=== PATIENT | female | born 1965 | race Two or more races ===

== ENCOUNTER 2022-02-09 02:05 | Inpatient (IN) | payer MEDICAID ==
[~2022-02-09] VITALS: Ht 157.5 cm; Wt 88.0 kg
[2022-02-09 02:48] LABS: BASOPHILS % (AUTO) 0.5 % (0.0-2.0); EOSINOPHILS % (AUTO) 3.1 % (1.0-6.0); HEMATOCRIT 40.1 % (36-46); HEMOGLOBIN 13.2 g/dL (12.0-16.0); LYMPHOCYTES # (AUTO) 3.9 K/uL (1.0-4.8); LYMPHOCYTES % (AUTO) 39.4 % (22.0-44.0); MEAN CORPUSCULAR HEMOGLOBIN 28.1 pg (26.0-34.0); MEAN CORPUSCULAR VOLUME 85 fL (80-100); MONOCYTES # (AUTO) 0.6 K/uL (0.1-1.0); MONOCYTES % (AUTO) 5.9 % (2.0-9.0); NEUTROPHILS % (AUTO) 51.1 % (40.0-70.0); PLATELET COUNT (AUTO) 318 K/uL (150-450); RED BLOOD CELL COUNT(AUTO) 4.71 MIL/uL (4.00-5.20); RED CELL DISTRIBUTION WIDTH 15.5 % (11.5-14.5)
[2022-02-09 02:57] LABS: ANION GAP 9 mmol/L (8-16); CALCIUM, TOTAL 8.4 mg/dL (8.8-10.5); CARBON DIOXIDE 27 mmol/L (22-29); CHLORIDE 103 mmol/L (98-107); CREATININE 0.75 mg/dL (0.60-1.30); GLUCOSE,RANDOM 123 mg/dL (70-110); POTASSIUM 3.4 mmol/L (3.5-5.1); SODIUM SERUM 139 mmol/L (136-145); UREA NITROGEN, BLOOD 13 mg/dL (7-18)
[2022-02-09 02:59] LABS: GLOMERULAR FILTR. RATE CALC > 60 mL/min (>60)
[2022-02-09 03:03] LABS: ALANINE AMINOTRANSFERASE 19 U/L (12-78); ALKALINE PHOSPHATASE 108 U/L (46-116); ASPARTATE AMINOTRANSFERASE 13 U/L (15-37); BILIRUBIN,TOTAL 0.1 mg/dL (0.1-1.0); TOTAL PROTEIN, SERUM 6.3 g/dL (6.4-8.2)
[2022-02-09 07:06] LABS: COVID AG,FIA SOURCE NASAL SWAB
[2022-02-09 10:12] VITALS: BP 129/71
[2022-02-09 16:00] VITALS: BP 148/76
[2022-02-09] MEDS ORDERED: MAG HYDROX/AL HYDROX/SIMETH ES 30 ML SUSPENSION UDCUP PO PRN (16:15)
[2022-02-09] MEDS ORDERED: GuaiFENesin/D-METHORPHAN [SUGAR-FREE] 200-20MG/10 ML SYRUP UDCUP PO PRN (16:15)
[2022-02-09] MEDS ORDERED: OLANZapine 5 MG RAPDIS TABLET PO PRN (16:15)
[2022-02-09] MEDS ORDERED: ACETAMINOPHEN 325 MG TABLET PO PRN (16:15)
[2022-02-09] MEDS ORDERED: LOPERAMIDE HCL 2 MG CAPSULE PO PRN (16:15)
[2022-02-09] MEDS ORDERED: PROMETHAZINE HCL 25 MG TABLET PO PRN (16:15)
[2022-02-09] MEDS ORDERED: HydrOXYzine PAMOATE 50 MG CAPSULE PO PRN (16:15)
[2022-02-09] MEDS ORDERED: ZOLPIDEM TARTRATE 10 MG TABLET PO PRN (16:15)
[2022-02-09] MEDS ORDERED: LORazepam 2 MG TABLET PO PRN (16:15)
[2022-02-09] MEDS ORDERED: TUBERCULIN, PURIFIED PROTEIN DERIVATIVE 5 TU/0.1 ML SYRINGE ID ONE (16:15)
[2022-02-09] MEDS ORDERED: MAGNESIUM HYDROXIDE SUSPENSION 30 ML UDCUP PO PRN (16:15)
[2022-02-09] MEDS: THIAMINE 100 MG TABLET PO SCH (19:33)
[2022-02-09] MEDS: PARoxetine HCL 20 MG TABLET PO SCH ×2 (20:27→20:39)
[2022-02-09] MEDS: TraZODone HCL 50 MG TABLET PO SCH ×2 (20:27→20:39)
[2022-02-09] MEDS: MELATONIN 5 MG TABLET PO SCH ×2 (20:27→20:39)
[2022-02-09] MEDS ORDERED: POTASSIUM CHLORIDE 20 MEQ ER TABLET PO ONE (21:45)
[2022-02-10 07:03] LABS: ANION GAP 8 mmol/L (8-16); CALCIUM, TOTAL 8.2 mg/dL (8.8-10.5); CARBON DIOXIDE 29 mmol/L (22-29); CHLORIDE 103 mmol/L (98-107); CREATININE 0.68 mg/dL (0.60-1.30); GLUCOSE,RANDOM 148 mg/dL (70-110); POTASSIUM 4.6 mmol/L (3.5-5.1); SODIUM SERUM 140 mmol/L (136-145); UREA NITROGEN, BLOOD 11 mg/dL (7-18)
[2022-02-10 07:04] LABS: GLOMERULAR FILTR. RATE CALC > 60 mL/min (>60)
[2022-02-10 07:05] LABS: HEMOGLOBIN A1C 6.2 % (3.8-5.6)
[2022-02-10 07:17] LABS: CHOL/HDL RATIO 3.1 (3.9-5.7); FREE T4 (FREE THYROXINE) 0.99 ng/dL (0.76-1.46); THYROID STIMULATING HORMONE 1.21 uIU/mL (0.36-3.74)
[2022-02-10 08:52] VITALS: BP 158/86
[2022-02-10] MEDS: THIAMINE 100 MG TABLET PO SCH ×2 (09:06→16:07)
[2022-02-10] MEDS: FOLIC ACID 1 MG TABLET PO SCH (09:06)
[2022-02-10] MEDS: NALTREXONE HCL 50 MG TABLET PO SCH (09:06)
[2022-02-10] MEDS: OMEGA-3/DHA/EPA/FISH OIL 1,000 MG CAPSULE PO SCH (09:06)
[2022-02-10] MEDS: MULTIVITAMINS WITH MINERALS, THERAPEUTIC TABLET PO SCH (09:07)
[2022-02-10 16:21] VITALS: BP 143/80
[2022-02-10] MEDS ORDERED: DEXTROSE 50%-WATER 25 GM/50 ML SYRINGE IVP PRN (17:30)
[2022-02-10] MEDS: NICOTINE 21 MG/24 HOUR PATCH TD SCH (18:57)
[2022-02-10] MEDS: TraZODone HCL 50 MG TABLET PO SCH (20:30)
[2022-02-10] MEDS: PARoxetine HCL 20 MG TABLET PO SCH (20:30)
[2022-02-10] MEDS: MELATONIN 5 MG TABLET PO SCH (20:30)
[2022-02-11 05:07] LABS: HEPATITIS C AB (EIA) <0.1 s/co ratio (0.0-0.9)
[2022-02-11 05:41] LABS: GLUCOMETER DEV NAME(LOC) 3E.I 2; GLUCOSE,POINT OF CARE 129 MG/DL (70-110)
[2022-02-11 08:00] VITALS: BP 128/64
[2022-02-11] MEDS: NICOTINE 21 MG/24 HOUR PATCH TD SCH (09:00)
[2022-02-11] MEDS: OMEGA-3/DHA/EPA/FISH OIL 1,000 MG CAPSULE PO SCH (09:31)
[2022-02-11] MEDS: THIAMINE 100 MG TABLET PO SCH ×2 (09:31→16:35)
[2022-02-11] MEDS: MULTIVITAMINS WITH MINERALS, THERAPEUTIC TABLET PO SCH (09:31)
[2022-02-11] MEDS: FOLIC ACID 1 MG TABLET PO SCH (09:31)
[2022-02-11] MEDS: NALTREXONE HCL 50 MG TABLET PO SCH (09:31)
[2022-02-11 16:00] VITALS: BP 127/67
[2022-02-11 16:56] LABS: GLUCOMETER DEV NAME(LOC) 3E.I 2; GLUCOSE,POINT OF CARE 111 MG/DL (70-110)
[2022-02-11] MEDS: PARoxetine HCL 20 MG TABLET PO SCH (20:38)
[2022-02-11] MEDS: MELATONIN 5 MG TABLET PO SCH (20:39)
[2022-02-12 06:21] LABS: GLUCOMETER DEV NAME(LOC) 3E.I 2; GLUCOSE,POINT OF CARE 117 MG/DL (70-110)
[2022-02-12 08:30] VITALS: BP 138/76
[2022-02-12] MEDS: OMEGA-3/DHA/EPA/FISH OIL 1,000 MG CAPSULE PO SCH (08:50)
[2022-02-12] MEDS: MULTIVITAMINS WITH MINERALS, THERAPEUTIC TABLET PO SCH (08:50)
[2022-02-12] MEDS: NICOTINE 21 MG/24 HOUR PATCH TD SCH ×2 (08:50→09:00)
[2022-02-12] MEDS: FOLIC ACID 1 MG TABLET PO SCH (08:50)
[2022-02-12] MEDS: THIAMINE 100 MG TABLET PO SCH ×2 (08:50→16:59)
[2022-02-12] MEDS: NALTREXONE HCL 50 MG TABLET PO SCH ×2 (08:50→09:00)
[2022-02-12 16:18] VITALS: BP 142/80
[2022-02-12 16:46] LABS: GLUCOMETER DEV NAME(LOC) 3E.I 2; GLUCOSE,POINT OF CARE 204 MG/DL (70-110)
[2022-02-12] MEDS: PARoxetine HCL 20 MG TABLET PO SCH (20:49)
[2022-02-12] MEDS: MELATONIN 5 MG TABLET PO SCH (20:49)
[2022-02-13 06:11] LABS: GLUCOMETER DEV NAME(LOC) 3E.I 2; GLUCOSE,POINT OF CARE 115 MG/DL (70-110)
[2022-02-13 08:00] VITALS: BP 128/75
[2022-02-13] MEDS: OMEGA-3/DHA/EPA/FISH OIL 1,000 MG CAPSULE PO SCH (08:50)
[2022-02-13] MEDS: NICOTINE 21 MG/24 HOUR PATCH TD SCH (08:50)
[2022-02-13] MEDS: FOLIC ACID 1 MG TABLET PO SCH (08:50)
[2022-02-13] MEDS: NALTREXONE HCL 50 MG TABLET PO SCH ×2 (08:50→09:00)
[2022-02-13] MEDS: MULTIVITAMINS WITH MINERALS, THERAPEUTIC TABLET PO SCH (08:50)
[2022-02-13] MEDS: THIAMINE 100 MG TABLET PO SCH ×2 (08:50→16:25)
[2022-02-13 16:25] VITALS: BP 126/76
[2022-02-13 17:26] LABS: GLUCOMETER DEV NAME(LOC) 3E.I 2; GLUCOSE,POINT OF CARE 110 MG/DL (70-110)
[2022-02-13] MEDS: PARoxetine HCL 20 MG TABLET PO SCH (20:23)
[2022-02-13] MEDS: MELATONIN 5 MG TABLET PO SCH ×2 (20:23→20:32)
[2022-02-14 05:41] LABS: GLUCOMETER DEV NAME(LOC) 3E.I 2; GLUCOSE,POINT OF CARE 108 MG/DL (70-110)
[2022-02-14 08:52] VITALS: BP 121/66
[2022-02-14] MEDS: NICOTINE 21 MG/24 HOUR PATCH TD SCH ×2 (09:00→09:22)
[2022-02-14] MEDS: NALTREXONE HCL 50 MG TABLET PO SCH (09:20)
[2022-02-14] MEDS: MULTIVITAMINS WITH MINERALS, THERAPEUTIC TABLET PO SCH (09:20)
[2022-02-14] MEDS: FOLIC ACID 1 MG TABLET PO SCH (09:20)
[2022-02-14] MEDS: THIAMINE 100 MG TABLET PO SCH ×2 (09:20→16:24)
[2022-02-14] MEDS: OMEGA-3/DHA/EPA/FISH OIL 1,000 MG CAPSULE PO SCH (09:20)
[2022-02-14 16:16] VITALS: BP 112/78
[2022-02-14 16:56] LABS: GLUCOMETER DEV NAME(LOC) 3E.I 2; GLUCOSE,POINT OF CARE 154 MG/DL (70-110)
[2022-02-14] MEDS: PARoxetine HCL 20 MG TABLET PO SCH (20:23)
[2022-02-14] MEDS: MELATONIN 5 MG TABLET PO SCH (20:24)
[2022-02-15 06:27] LABS: GLUCOMETER DEV NAME(LOC) 3E.I 2; GLUCOSE,POINT OF CARE 121 MG/DL (70-110)
[2022-02-15 06:44] LABS: COVID AG,FIA SOURCE NASOPHARYNGEAL
[2022-02-15] MEDS: INSULIN LISPRO 100 UNITS/ML SQ PRN (07:21)
[2022-02-15 08:00] VITALS: BP 156/81
[2022-02-15] MEDS: NICOTINE 21 MG/24 HOUR PATCH TD SCH (09:00)
[2022-02-15] MEDS: OMEGA-3/DHA/EPA/FISH OIL 1,000 MG CAPSULE PO SCH (09:29)
[2022-02-15] MEDS: THIAMINE 100 MG TABLET PO SCH ×2 (09:29→16:01)
[2022-02-15] MEDS: MULTIVITAMINS WITH MINERALS, THERAPEUTIC TABLET PO SCH (09:29)
[2022-02-15] MEDS: FOLIC ACID 1 MG TABLET PO SCH (09:29)
[2022-02-15] MEDS: NALTREXONE HCL 50 MG TABLET PO SCH (09:29)
[2022-02-15 16:09] VITALS: BP 132/65
[2022-02-15 16:16] LABS: GLUCOMETER DEV NAME(LOC) 3E.I 2; GLUCOSE,POINT OF CARE 121 MG/DL (70-110)
[2022-02-15] MEDS: MELATONIN 5 MG TABLET PO SCH (20:42)
[2022-02-15] MEDS: PARoxetine HCL 20 MG TABLET PO SCH (20:43)
[2022-02-16 06:21] LABS: GLUCOMETER DEV NAME(LOC) 3E.I 2; GLUCOSE,POINT OF CARE 92 MG/DL (70-110)
[2022-02-16] MEDS: INSULIN LISPRO 100 UNITS/ML SQ PRN (06:39)
[2022-02-16 08:00] VITALS: BP 125/75
[2022-02-16] MEDS: MULTIVITAMINS WITH MINERALS, THERAPEUTIC TABLET PO SCH (08:33)
[2022-02-16] MEDS: OMEGA-3/DHA/EPA/FISH OIL 1,000 MG CAPSULE PO SCH (08:33)
[2022-02-16] MEDS: NALTREXONE HCL 50 MG TABLET PO SCH (08:33)
[2022-02-16] MEDS: FOLIC ACID 1 MG TABLET PO SCH (08:34)
[2022-02-16] MEDS: THIAMINE 100 MG TABLET PO SCH ×2 (08:34→17:21)
[2022-02-16] MEDS: NICOTINE 21 MG/24 HOUR PATCH TD SCH (08:35)
[2022-02-16] MEDS ORDERED: OMEG-135 PO (16:33)
[2022-02-16] MEDS ORDERED: MELA5TAB40 PO (16:33)
[2022-02-16] MEDS ORDERED: NALT50TA PO (16:33)
[2022-02-16] MEDS ORDERED: PARO-37 PO (16:33)
[2022-02-16 16:56] LABS: GLUCOMETER DEV NAME(LOC) 3E.I 2; GLUCOSE,POINT OF CARE 143 MG/DL (70-110)
[2022-02-16] MEDS: PARoxetine HCL 20 MG TABLET PO SCH (20:53)
[2022-02-16] MEDS: MELATONIN 5 MG TABLET PO SCH (20:53)
[2022-02-17 05:46] LABS: GLUCOMETER DEV NAME(LOC) 3E.I 2; GLUCOSE,POINT OF CARE 113 MG/DL (70-110)
[2022-02-17 08:30] VITALS: BP 134/77
[2022-02-17] MEDS: NICOTINE 21 MG/24 HOUR PATCH TD SCH (09:00)
[2022-02-17] MEDS: OMEGA-3/DHA/EPA/FISH OIL 1,000 MG CAPSULE PO SCH (09:17)
[2022-02-17] MEDS: FOLIC ACID 1 MG TABLET PO SCH (09:17)
[2022-02-17] MEDS: MULTIVITAMINS WITH MINERALS, THERAPEUTIC TABLET PO SCH (09:17)
[2022-02-17] MEDS: THIAMINE 100 MG TABLET PO SCH (09:17)
[2022-02-17] MEDS: NALTREXONE HCL 50 MG TABLET PO SCH (09:17)
== END 2022-02-17 10:50 | disposition home or self-care (01) | DRG 751 ==
LOC: EMS 02:08 → 3EI 04:48
PROVIDERS: ADMIT Psychiatry & Neurology Psychiatry; ATTEND Psychiatry & Neurology Psychiatry
DX: F33.2 Major depressive disorder, recurrent severe without psychotic features (principal); R45.851 Suicidal ideations; E83.51 Hypocalcemia; R45.81 Low self-esteem; F41.8 Other specified anxiety disorders; E87.6 Hypokalemia; Z20.822 Contact with and (suspected) exposure to COVID-19; F15.10 Other stimulant abuse, uncomplicated; F06.30 Mood disorder due to known physiological condition, unspecified; Z55.9 Problems related to education and literacy, unspecified; Z59.9 Problem related to housing and economic circumstances, unspecified; Z63.9 Problem related to primary support group, unspecified; Z65.3 Problems related to other legal circumstances; Z72.0 Tobacco use; Z88.1 Allergy status to other antibiotic agents; Z59.00 Homelessness unspecified
CPT/HCPCS: 80048; 80053; 80061; 80074; 82962; 83036; 84439; 84443; 85025; 86592; 99285; G0480; Q9967